=== PATIENT | male | born 1935 | race Caucasian/White ===

== ENCOUNTER 2017-07-22 23:01 | Inpatient (IN) | payer BC, OTHER, MEDICARE ==
[2017-07-23] MEDS: HYDROCODONE/APAP (10/325) TAB PO (03:22)
[2017-07-23 05:33] LABS: ADD MAN DIFF? NO
[2017-07-23 05:52] LABS: ABNORMAL IP MESSAGE 1; BASOPHIL # 0.1 10^3/ul (0.0-0.1); BASOPHILS % 0.4 % (0.0-2.0); EOSINOPHILS # 0.1 10^3/ul (0.0-0.5); EOSINOPHILS % 0.6 % (0.0-7.0); HEMATOCRIT 32.8 % (42.0-52.0); HEMOGLOBIN 10.2 g/dl (14.0-18.0); LYMPHOCYTES # 1.5 10^3/ul (0.8-2.9); LYMPHOCYTES % 9.4 % (15.0-51.0); MEAN CORPUSCULAR HEMOGLOBIN 26.1 pg (29.0-33.0); MEAN CORPUSCULAR HGB CONC 31.1 g/dl (32.0-37.0); MEAN CORPUSCULAR VOLUME 83.9 fl (82.0-101.0); MEAN PLATELET VOLUME 11.2 fl (7.4-10.4); MONOCYTE # 1.7 10^3/ul (0.3-0.9); MONOCYTES % 10.7 % (0.0-11.0); NEUTROPHIL # 12.6 10^3/ul (1.6-7.5); NEUTROPHILS % 78.4 % (39.0-77.0); PLATELET COUNT 447 10^3/UL (140-415); POSITIVE DIFF @See below; RED BLOOD COUNT 3.91 10^6/ul (4.70-6.10); RED CELL DISTRIBUTION WIDTH 12.9 % (11.5-14.5)
[2017-07-23 05:52] LABS: WHITE BLOOD COUNT 16.1 10^3/ul (4.8-10.8)
[2017-07-23 05:57] LABS: INR 1.13; PROTIME 14.7 Sec (11.9-14.9); PT RATIO 1.1
[2017-07-23 05:58] LABS: PARTIAL THROMBOPLASTIN TIME 32.9 Sec (25.0-35.0)
[2017-07-23] MEDS ORDERED: NACL 0.9% 3 ML SYG IV (06:00)
[2017-07-23] MEDS ORDERED: ACETAMINOPHEN 325 MG TAB PO (06:00)
[2017-07-23] MEDS ORDERED: ONDANSETRON 4 MG TAB PO (06:00)
[2017-07-23 06:01] LABS: ALANINE AMINOTRANSFERASE 25 IU/L (13-69); ALBUMIN 3.8 g/dl (3.3-4.9); ALBUMIN/GLOBULIN RATIO 1.26; ALKALINE PHOSPHATASE 81 IU/L (42-121); ANION GAP 19 (8-16); ASPARTATE AMINO TRANSFERASE 22 IU/L (15-46); BLOOD UREA NITROGEN 38 mg/dl (7-20); CALCIUM 9.8 mg/dl (8.4-10.2); CARBON DIOXIDE 26 mmol/L (21-31); CHLORIDE 108 mmol/L (97-110); CREATININE 1.62 mg/dl (0.61-1.24); GLUCOSE 156 mg/dl (70-220); LIPASE 400 U/L (23-300); POTASSIUM 4.4 mmol/L (3.5-5.1); SODIUM 149 mmol/L (135-144); TOTAL PROTEIN 6.8 g/dl (6.1-8.1)
[2017-07-23] MEDS: SOD CHLORIDE 0.9% 1,000 ML IV (07:10)
[2017-07-23 07:56] LABS: CREATINE KINASE 42 IU/L (23-200)
[2017-07-23 08:10] LABS: TROPONIN-I 0.035 ng/ml (0.00-0.12)
[2017-07-23 08:11] LABS: CK-MB 2.08 ng/ml (0.0-2.4)
[2017-07-23] MEDS ORDERED: DEXTROSE 5% 1,000 ML IV (08:30)
[2017-07-23] MEDS: SOD CHLORIDE 0.45% 1,000 ML IV ×2 (08:54→19:13)
[2017-07-23 10:19] LABS: B-TYPE NATRIURETIC PEPTIDE 1900 PG/ML (0-450)
[2017-07-23 12:25] LABS: ADD UMIC YES; UR ASCORBIC ACID NEGATIVE (NEGATIVE); UR BILIRUBIN (Dip) NEGATIVE (NEGATIVE); UR BLOOD (Dip) NEGATIVE (NEGATIVE); UR CLARITY CLEAR (CLEAR); UR COLOR YELLOW (YELLOW); UR GLUCOSE (Dip) 2+ mg/dL (NEGATIVE); UR KETONES (Dip) NEGATIVE (NEGATIVE); UR LEUKOCYTE ESTERASE (Dip) NEGATIVE Leu/ul (NEGATIVE); UR NITRITE (Dip) NEGATIVE (NEGATIVE); UR RBC 0 /HPF (0-5); UR SPECIFIC GRAVITY (Dip) 1.018 (1.003-1.030); UR TOTAL PROTEIN (Dip) 2+ mg/dl (NEGATIVE); UR UROBILINOGEN (Dip) NEGATIVE (NEGATIVE); UR WBC 1 /HPF (0-5)
[2017-07-23 13:25] LABS: CREATINE KINASE 36 IU/L (23-200)
[2017-07-23 13:37] LABS: CK INDEX 5.2; TROPONIN-I 0.021 ng/ml (0.00-0.12)
[2017-07-23 13:39] LABS: CK-MB 1.88 ng/ml (0.0-2.4)
[2017-07-23 13:59] LABS: CARCINOEMBRYONIC ANTIGEN 1.3 ng/ml (0.0-5.0)
[2017-07-23 14:04] LABS: CANCER ANTIGEN 19-9 10.7 U/ml (0.0-37.0)
[2017-07-23] MEDS: morphine 2 MG INJ IV (17:50)
[2017-07-24] MEDS: SOD CHLORIDE 0.45% 1,000 ML IV ×2 (04:48→17:59)
[2017-07-24 08:37] LABS: ADD MAN DIFF? NO
[2017-07-24 08:40] LABS: WHITE BLOOD COUNT 12.6 10^3/ul (4.8-10.8)
[2017-07-24 08:40] LABS: BASOPHIL # 0.1 10^3/ul (0.0-0.1); BASOPHILS % 0.6 % (0.0-2.0); EOSINOPHILS # 0.3 10^3/ul (0.0-0.5); EOSINOPHILS % 2.3 % (0.0-7.0); HEMATOCRIT 27.9 % (42.0-52.0); HEMOGLOBIN 8.8 g/dl (14.0-18.0); LYMPHOCYTES # 1.7 10^3/ul (0.8-2.9); LYMPHOCYTES % 13.7 % (15.0-51.0); MEAN CORPUSCULAR HEMOGLOBIN 26.3 pg (29.0-33.0); MEAN CORPUSCULAR HGB CONC 31.5 g/dl (32.0-37.0); MEAN CORPUSCULAR VOLUME 83.3 fl (82.0-101.0); MEAN PLATELET VOLUME 10.5 fl (7.4-10.4); MONOCYTE # 1.1 10^3/ul (0.3-0.9); MONOCYTES % 8.9 % (0.0-11.0); NEUTROPHIL # 9.3 10^3/ul (1.6-7.5); PLATELET COUNT 414 10^3/UL (140-415); RED BLOOD COUNT 3.35 10^6/ul (4.70-6.10)
[2017-07-24 08:57] LABS: HEMOGLOBIN A1C 6.5 % (0-5.9)
[2017-07-24 09:04] LABS: ALANINE AMINOTRANSFERASE 27 IU/L (13-69); ALBUMIN 2.9 g/dl (3.3-4.9); ALKALINE PHOSPHATASE 59 IU/L (42-121); ANION GAP 13 (8-16); ASPARTATE AMINO TRANSFERASE 13 IU/L (15-46); BLOOD UREA NITROGEN 25 mg/dl (7-20); CALCIUM 9.3 mg/dl (8.4-10.2); CARBON DIOXIDE 26 mmol/L (21-31); CHLORIDE 107 mmol/L (97-110); CREATININE 1.34 mg/dl (0.61-1.24); GLUCOSE 144 mg/dl (70-220); POTASSIUM 3.8 mmol/L (3.5-5.1); SODIUM 142 mmol/L (135-144); TOTAL PROTEIN 5.8 g/dl (6.1-8.1)
[2017-07-24 09:06] LABS: DIGOXIN < 0.4 ng/ml (1.0-2.0)
[2017-07-24 09:09] LABS: MAGNESIUM 1.6 mg/dl (1.7-2.5)
[2017-07-24 09:09] LABS: CHOL/HDL RATIO 3.1 RATIO; CHOLESTEROL 114 mg/dl (100-200); HDL CHOLESTEROL 36 mg/dl (31-75); LDL CHOLESTEROL,CALCULATED 66 mg/dl; TRIGLYCERIDES 60 mg/dl (0-149)
[2017-07-24 09:12] LABS: B-TYPE NATRIURETIC PEPTIDE 2560 PG/ML (0-450)
[2017-07-24 09:23] LABS: FREE T4 (FREE THYROXINE) 1.45 ng/dl (0.85-1.93)
[2017-07-24 10:04] LABS: THYROID STIMULATING HORMONE 0.796 MIU/L (0.465-4.680)
[2017-07-24] MEDS: MAGNESIUM SULFATE 2 GM/50 ML 50 ML IVPB (10:47)
[2017-07-24] MEDS: morphine 2 MG INJ IV (11:27)
[2017-07-24] MEDS: DOCUSATE SODIUM 100 MG CAP PO ×2 (15:03→21:00)
[2017-07-24] MEDS: POLYETHYLENE GLYCOL 17 GM PACKET GTB (15:03)
[2017-07-25] MEDS: SOD CHLORIDE 0.45% 1,000 ML IV (02:56)
[2017-07-25 07:52] LABS: ADD MAN DIFF? NO
[2017-07-25 07:55] LABS: BASOPHIL # 0.1 10^3/ul (0.0-0.1); BASOPHILS % 0.5 % (0.0-2.0); EOSINOPHILS # 0.4 10^3/ul (0.0-0.5); EOSINOPHILS % 3.1 % (0.0-7.0); HEMATOCRIT 26.7 % (42.0-52.0); HEMOGLOBIN 8.3 g/dl (14.0-18.0); LYMPHOCYTES # 1.7 10^3/ul (0.8-2.9); LYMPHOCYTES % 13.1 % (15.0-51.0); MEAN CORPUSCULAR HEMOGLOBIN 25.8 pg (29.0-33.0); MEAN CORPUSCULAR HGB CONC 31.1 g/dl (32.0-37.0); MEAN CORPUSCULAR VOLUME 82.9 fl (82.0-101.0); MEAN PLATELET VOLUME 10.4 fl (7.4-10.4); MONOCYTE # 1.4 10^3/ul (0.3-0.9); MONOCYTES % 10.8 % (0.0-11.0); NEUTROPHIL # 9.3 10^3/ul (1.6-7.5); NEUTROPHILS % 72.1 % (39.0-77.0); PLATELET COUNT 372 10^3/UL (140-415); RED BLOOD COUNT 3.22 10^6/ul (4.70-6.10); RED CELL DISTRIBUTION WIDTH 12.9 % (11.5-14.5)
[2017-07-25 07:55] LABS: WHITE BLOOD COUNT 12.8 10^3/ul (4.8-10.8)
[2017-07-25 08:35] LABS: ANION GAP 12 (8-16); BLOOD UREA NITROGEN 32 mg/dl (7-20); CALCIUM 8.7 mg/dl (8.4-10.2); CARBON DIOXIDE 25 mmol/L (21-31); CHLORIDE 103 mmol/L (97-110); CREATININE 1.59 mg/dl (0.61-1.24); GLUCOSE 146 mg/dl (70-220); MAGNESIUM 1.8 mg/dl (1.7-2.5); POTASSIUM 4.2 mmol/L (3.5-5.1); SODIUM 136 mmol/L (135-144)
[2017-07-25] MEDS: POLYETHYLENE GLYCOL 17 GM PACKET GTB (08:45)
[2017-07-25] MEDS: DOCUSATE SODIUM 100 MG CAP PO ×2 (08:45→21:00)
[2017-07-25] MEDS: ENOXAPARIN 30 MG/0.3 ML SYG SC (08:47)
[2017-07-26] MEDS: ENOXAPARIN 30 MG/0.3 ML SYG SC (08:28)
[2017-07-26] MEDS: POLYETHYLENE GLYCOL 17 GM PACKET GTB (08:28)
[2017-07-26] MEDS: DOCUSATE SODIUM 100 MG CAP PO (08:28)
[2017-07-26 08:41] LABS: ADD MAN DIFF? NO
[2017-07-26 08:46] LABS: ABNORMAL IP MESSAGE 1; BASOPHIL # 0.1 10^3/ul (0.0-0.1); BASOPHILS % 0.6 % (0.0-2.0); EOSINOPHILS # 0.3 10^3/ul (0.0-0.5); EOSINOPHILS % 2.6 % (0.0-7.0); HEMATOCRIT 27.7 % (42.0-52.0); LYMPHOCYTES # 1.6 10^3/ul (0.8-2.9); LYMPHOCYTES % 12.7 % (15.0-51.0); MEAN CORPUSCULAR HEMOGLOBIN 26.4 pg (29.0-33.0); MEAN CORPUSCULAR HGB CONC 32.5 g/dl (32.0-37.0); MEAN CORPUSCULAR VOLUME 81.2 fl (82.0-101.0); MEAN PLATELET VOLUME 10.7 fl (7.4-10.4); MONOCYTE # 1.5 10^3/ul (0.3-0.9); MONOCYTES % 12.2 % (0.0-11.0); NEUTROPHIL # 8.9 10^3/ul (1.6-7.5); NEUTROPHILS % 71.5 % (39.0-77.0); PLATELET COUNT 412 10^3/UL (140-415); POSITIVE DIFF @See below; RED BLOOD COUNT 3.41 10^6/ul (4.70-6.10); RED CELL DISTRIBUTION WIDTH 12.9 % (11.5-14.5)
[2017-07-26 08:46] LABS: WHITE BLOOD COUNT 12.4 10^3/ul (4.8-10.8)
[2017-07-26 09:05] LABS: ANION GAP 14 (8-16); BLOOD UREA NITROGEN 29 mg/dl (7-20); CALCIUM 8.8 mg/dl (8.4-10.2); CARBON DIOXIDE 25 mmol/L (21-31); CHLORIDE 101 mmol/L (97-110); CREATININE 1.46 mg/dl (0.61-1.24); GLUCOSE 143 mg/dl (70-220); POTASSIUM 4.2 mmol/L (3.5-5.1); SODIUM 136 mmol/L (135-144)
== END 2017-07-26 19:20 | DRG 536 ==
LOC: E/R 23:01 → MS4 07-23 05:49
DX: S72.115A Nondisplaced fracture of greater trochanter of left femur, initial encounter for closed fracture (principal); N17.9 Acute kidney failure, unspecified; C77.9 Secondary and unspecified malignant neoplasm of lymph node, unspecified; I42.9 Cardiomyopathy, unspecified; M48.56XA Collapsed vertebra, not elsewhere classified, lumbar region, initial encounter for fracture; C64.9 Malignant neoplasm of unspecified kidney, except renal pelvis; E87.1 Hypo-osmolality and hyponatremia; E11.9 Type 2 diabetes mellitus without complications; I49.9 Cardiac arrhythmia, unspecified; D72.829 Elevated white blood cell count, unspecified; W19.XXXA Unspecified fall, initial encounter; Y92.009 Unspecified place in unspecified non-institutional (private) residence as the place of occurrence of the external cause; R41.3 Other amnesia; R73.03 Prediabetes; D50.9 Iron deficiency anemia, unspecified; K59.00 Constipation, unspecified; N18.9 Chronic kidney disease, unspecified
CPT/HCPCS: 70450; 71045; 73510; 73700; 74176; 80048; 80053; 80061; 80162; 81001; 82378; 82550; 82553; 83036; 83690; 83735; 83880; 84439; 84443; 84484; 85025; 85610; 85730; 86301; 93005; 93306; 97163